=== PATIENT | female | born 1945 | race Caucasian/White ===

== ENCOUNTER → 2022-01-09 10:51 | Outpatient (BNVA) | payer OTHER, SELFPAY | PROVIDERS: Visit Provider Orthopaedic Surgery | DX: M65.312 Trigger thumb, left thumb (principal) | CPT/HCPCS: 20550; 99202; J1100 ==

== ENCOUNTER → 2022-02-14 12:35 | Outpatient (BNVA) | payer OTHER, SELFPAY | PROVIDERS: Visit Provider Orthopaedic Surgery | DX: M65.312 Trigger thumb, left thumb (principal) | CPT/HCPCS: 99212 ==

== ENCOUNTER 2022-03-05 08:53 | Day surgery (SDC) | payer OTHER, SELFPAY ==
[2022-03-05 09:11] VITALS: BP 152/88; PULSE 84; RESP 18; TEMP 36; O2SAT 97; BMI 24.4
[2022-03-05 11:45] VITALS: BP 117/80; PULSE 88; RESP 18; TEMP 36.4; O2SAT 98
--- NOTE | 2022-03-05 12:14 | MHC.SHP ---
Pre-Procedural Eval Section A Date of Service: 03/05/22 The patient is an INPATIENT: No Changes since office visit: No Cold of Flu in the past 2 weeks, No New Medical Problems, No Changes in Medication and No Patient answered all questions The History & Physical has been completed within 30 days and I have reviewed it.: Yes Section B Chief Complaint: trigger thumb Allergies: Allergies Allergy/AdvReac Type Severity Reaction Status Date / Time codeine Allergy Intermediate Hives Verified 02/14/22 12:50 egg Allergy Mild Unknown Verified 02/14/22 12:50 shellfish derived Allergy Unknown Verified 02/14/22 12:50 Plan I have reviewed the history and physical and performed a pertinent physical examination on my patient. No changes have occurred unless specified.
--- NOTE | 2022-03-05 12:14 | W.PM.OPN ---
Operative Note Operative Note Date of Service: 03/05/22 Narrative: Operative Note Preop diagnosis: 1. 1. Left thumb Trigger finger Postop diagnosis: 1. Left thumb Trigger finger Procedure: 1. Left thumb A1 bob release Surgeon: Linda Helton MD Anesthesia: local block using 1% lidocaine with epinephrine Findings: No locking or catching after A1 bob release EBL: Less than 5 mL Tourniquet time: None Specimens: None Complications: None Disposition: Brought to recovery room in stable condition Plan: Follow-up for 10-14 days for wound check and suture removal Indications: The patient is a 77 years old, with a left thumb trigger finger that has been unresponsive to nonoperative management. The risks and benefits of operative treatment including but not limited to risk of damage to blood vessels, nerves, tendons, infection, persistent pain, persistent symptoms, recurrence or possible need for additional surgery were discussed with the patient and the patient wishes to proceed with surgery. Procedure: Once consent was obtained a local block was performed in the preop area using a combination of 1% lidocaine with epinephrine. The patient was then brought back to the operating suite and placed on the operative table in supine position. A tourniquet was applied to the proximal aspect of the left upper extremity and the limb was prepped and draped in a standard surgical fashion. Once assured that we had a good block, a 1.5 cm oblique incision was made centered over the A1 bob of the left thumb . The incision was made through the skin to the subcutaneous tissues using a #15 blade. Careful dissection was made down to the level of the A1 bob using tenotomy scissors, with care being taken to protect the nearby neurovascular structures. A longitudinal incision was made in the A1 bob 1st using a #15 blade, then using tenotomy scissors under direct visualization. The A1 bob was noted to be thickened. Following our A1 bob release, we no longer saw any locking or catching of the digit with flexion and extension. Once satisfied with our A1 bob release the wound was copiously irrigated with normal saline and hemostasis was obtained with a brief period of local pressure. The skin edges were reapproximated with some 5.0 nylon suture material and a sterile dressing was applied. The patient appears to have tolerated the procedure well and with no complications. All digits were well vascularized at the conclusion of the case.
== END 2022-03-05 12:13 | disposition home or self-care (01) ==
LOC: HO.SSS 08:54
PROVIDERS: PCP Nurse Practitioner Family; Visit Provider Orthopaedic Surgery
PROC: (CPT 26055; principal; 2022-03-05 11:00)
DX: M65.312 Trigger thumb, left thumb (principal); I10 Essential (primary) hypertension; K21.9 Gastro-esophageal reflux disease without esophagitis; Z88.8 Allergy status to other drugs, medicaments and biological substances
CPT/HCPCS: 26055; J0171

== ENCOUNTER → 2022-08-14 10:27 | Outpatient (BNVA) | payer OTHER, SELFPAY | PROVIDERS: PCP Nurse Practitioner Family; Visit Provider Orthopaedic Surgery | DX: M65.311 Trigger thumb, right thumb (principal) | CPT/HCPCS: 99212 ==

== ENCOUNTER 2022-09-13 10:19 | Day surgery (SDC) | payer OTHER, SELFPAY ==
--- NOTE | 2022-09-13 10:19 | W.PM.OPN ---
Operative Note Operative Note Date of Service: 09/13/22 Narrative: Operative Note Preop diagnosis: 1. Right thumb Trigger finger Postop diagnosis: 1. Right thumb Trigger finger Procedure: 1. Right trigger thumb A1 bob release Surgeon: Linda Helton MD Anesthesia: local block using 1% lidocaine with epinephrine Findings: No locking or catching after A1 bob release EBL: Less than 5 mL Tourniquet time: None Specimens: None Complications: None Disposition: Brought to recovery room in stable condition Plan: Follow-up for 10-14 days for wound check and suture removal Indications: The patient is 77 years old, with a right trigger thumb that has been unresponsive to nonoperative management. The risks and benefits of operative treatment including but not limited to risk of damage to blood vessels, nerves, tendons, infection, persistent pain, persistent symptoms, recurrence or possible need for additional surgery were discussed with the patient and the patient wishes to proceed with surgery. Procedure: Once consent was obtained a local block was performed in the preop area using a combination of 1% lidocaine with epinephrine. The patient was then brought back to the operating suite and placed on the operative table in supine position. A tourniquet was applied to the proximal aspect of the right upper extremity and the limb was prepped and draped in a standard surgical fashion. Once assured that we had a good block, a 1.5 cm oblique incision was made centered over the A1 bob of the right thumb . The incision was made through the skin to the subcutaneous tissues using a #15 blade. Careful dissection was made down to the level of the A1 bob using tenotomy scissors, with care being taken to protect the nearby neurovascular structures. A longitudinal incision was made in the A1 bob 1st using a #15 blade, then using tenotomy scissors under direct visualization. The A1 bob was noted to be thickened. Following our A1 bob release, we no longer saw any locking or catching of the digit with flexion and extension. Once satisfied with our A1 bob release the wound was copiously irrigated with normal saline and hemostasis was obtained with a brief period of local pressure. The skin edges were reapproximated with some 5.0 nylon suture material and a sterile dressing was applied. The patient appears to have tolerated the procedure well and with no complications. All digits were well vascularized at the conclusion of the case.
[2022-09-13 10:33] VITALS: BMI 27.1
[2022-09-13 12:34] VITALS: BP 98/49; PULSE 82; RESP 18; O2SAT 97
--- NOTE | 2022-09-13 13:07 | MHC.SHP ---
Pre-Procedural Eval Section A Date of Service: 09/13/22 The patient is an INPATIENT: No Changes since office visit: No Cold of Flu in the past 2 weeks, No New Medical Problems, No Changes in Medication and No Patient answered all questions The History & Physical has been completed within 30 days and I have reviewed it.: Yes Section B Chief Complaint: Trigger thumb, right thumb Allergies: Allergies Allergy/AdvReac Type Severity Reaction Status Date / Time codeine Allergy Intermediate Hives Verified 08/14/22 10:45 egg Allergy Mild Nausea Verified 09/13/22 10:28 shellfish derived Allergy Mild Nausea Verified 09/13/22 10:28 Plan I have reviewed the history and physical and performed a pertinent physical examination on my patient. No changes have occurred unless specified. Time Spent With Patient Time: Total time managing care of this patient today ____ minutes.
== END 2022-09-13 13:15 | disposition home or self-care (01) ==
PROVIDERS: Visit Provider Orthopaedic Surgery
PROC: (CPT 26055; principal; 2022-09-13 11:40)
DX: M65.311 Trigger thumb, right thumb (principal); M25.541 Pain in joints of right hand; I48.91 Unspecified atrial fibrillation; I10 Essential (primary) hypertension; K21.9 Gastro-esophageal reflux disease without esophagitis; Z79.01 Long term (current) use of anticoagulants; Z79.899 Other long term (current) drug therapy; Z88.8 Allergy status to other drugs, medicaments and biological substances
CPT/HCPCS: 26055; J0171

== ENCOUNTER → 2022-09-25 12:35 | Outpatient (BNVA) | payer OTHER, SELFPAY | PROVIDERS: Visit Provider Orthopaedic Surgery | DX: Z13.89 Encounter for screening for other disorder (principal) ==